=== PATIENT | male | born 1955 | race Caucasian/White ===

== ENCOUNTER 2021-02-22 07:56 | Outpatient (REF) | payer BC, SELFPAY ==
[2021-02-22 08:54] LABS: Anion Gap 12 (12-20); Blood Urea Nitrogen 13 mg/dL (9-16); Carbon Dioxide 30 mmol/L (22-29); Chloride 104 mmol/L (96-108); Estimated Glomerular Filt Rate > 60; Glucose Fasting 163 mg/dL (60-99); Potassium 5.4 mmol/L (3.3-5.1); Sodium 141 mmol/L (135-145)
[2021-02-22 08:58] LABS: Estimated Average Glucose 143 mg/dL; Hemoglobin A1c % 6.6 %
== END 2021-02-22 07:57 | disposition home or self-care (01) ==
LOC: HO.LAB 07:56
PROVIDERS: PCP Family Medicine; Visit Provider Family Medicine
DX: I10 Essential (primary) hypertension (principal); R73.9 Hyperglycemia, unspecified
CPT/HCPCS: 36415; 80051; 82565; 82947; 83036; 84520

== ENCOUNTER 2021-06-23 10:34 | Outpatient (REF) | payer BC, SELFPAY ==
[2021-06-23 11:40] LABS: Glucose Fasting 133 mg/dL (60-99)
[2021-06-23 12:15] LABS: Creatinine Urine 90.88 mg/dL; Microalbum/Creatinine Ratio Ur 5.5 ug/mg cr
[2021-06-24 08:54] LABS: HIV AB/AG Nonreactive (Nonreactive); HIV Num 1 0.07 S/CO (0.00-0.99)
== END 2021-06-23 10:35 | disposition home or self-care (01) ==
LOC: HO.LAB 10:34
PROVIDERS: PCP Family Medicine; Visit Provider Family Medicine
DX: Z11.4 Encounter for screening for human immunodeficiency virus [HIV] (principal); E11.9 Type 2 diabetes mellitus without complications
CPT/HCPCS: 36415; 82043; 82947; 87389

== ENCOUNTER → 2021-07-12 09:08 | Outpatient (BNVA) | payer BC, SELFPAY | PROVIDERS: PCP Family Medicine; Visit Provider Physician Assistant ==

== ENCOUNTER 2021-08-29 14:54 | Outpatient (REF) | payer BC, SELFPAY ==
--- NOTE | ~2021-08-29 | XR_ITS ---
EXAMINATION: XR CHEST CLINICAL INFORMATION: Cough and wheezing COMPARISON: Previous chest x-ray most recent November 2018 TECHNIQUE: 2 views of the chest were obtained. FINDINGS: The cardiac and mediastinal contours are stable. The lungs are clear. There is no pleural effusion or pneumothorax. There are degenerative changes of the spine. XR/XR chest 2V IMPRESSION: Unremarkable examination.
== END 2021-08-29 14:55 | disposition home or self-care (01) ==
LOC: HO.XRAY 14:54
PROVIDERS: PCP Family Medicine; Visit Provider Family Medicine
DX: R05.9 Cough, unspecified (principal); R06.2 Wheezing
CPT/HCPCS: 71046

== ENCOUNTER 2021-09-05 08:10 | Day surgery (SDC) | payer BC, SELFPAY ==
--- NOTE | 2021-09-05 08:44 | HO.ANESPROP2 ---
[facility] Active Problems Active Problems: All Active Problems (Updated 08/30/21 @ 10:07 by Maci Collazo RN) History of colonic polyps (Acute) HTN (hypertension) (Acute) Diabetes (Acute) Acid reflux (Acute) Past Medical History Medical History (Updated 08/30/21 @ 10:07 by Maci Collazo, RN) Acid reflux Atherosclerotic heart disease of [place] coronary artery without angina pectoris BPH (benign prostatic hyperplasia) Diabetes Elevated cholesterol GERD (gastroesophageal reflux disease) History of diverticulitis HTN (hypertension) On beta dyan at home Osteoarthritis Family History Family History (Updated 07/12/21 @ 09:06 by Brenna Leblanc PA-C) Paternal Grandfather Colon cancer Family history of problems with anesthesia: No Surgical History Surgical History (Updated 08/30/21 @ 10:07 by Maci Collazo RN) H/O heart artery stent History of intestinal surgery Hx of colonoscopy History of Problems with Anesthesia: No Social History Social History (Updated 07/12/21 @ 09:07 by Brenna Leblanc PA-C) Household Members Other:: Alcohol intake: current Patient Tobacco Use Status: Never used Tobacco Use of substances other than those prescribed or required for medical reasons: No Are you DNR?: No Advance Directives: No Advance Directives Information Provided: Yes Current occupational status: retired [employer] Allergies Allergy/AdvReac Type Severity Reaction Status Date / Time sulfamethoxazole Allergy Rash Verified 09/05/21 08:46 [From Bactrim] trimethoprim [From Bactrim] Allergy Rash Verified 09/05/21 08:46 LAZARO Inhibitors AdvReac Cough Verified 09/05/21 08:46 Active Medications: Current Medications Lactated Ringer's (Lr) 1,000 mls @ 50 mls/hr IVCONT .Q20H [facility] Home Medications Medication Instructions Recorded Confirmed Last Taken Type alirocumab 150 mg/mL subcutaneous mg SUBCUT Q2W 07/12/21 07/12/21 Unknown History syringe amlodipine 5 mg tablet 5 mg PO DAILY 07/12/21 08/30/21 Unknown History aspirin 81 mg tablet,delayed 81 mg PO DAILY 07/12/21 08/30/21 Unknown History release coenzyme Q10 400 mg capsule 400 mg PO DAILY 07/12/21 08/30/21 Unknown History folic acid 400 mcg tablet 0.4 mg PO DAILY 07/12/21 08/30/21 Unknown History mecobalamin (vitamin B12) 1,000 1,000 mcg PO DAILY 07/12/21 07/12/21 Unknown History mcg chewable tablet metoprolol tartrate 50 mg tablet 50 mg PO BID 07/12/21 08/30/21 Unknown History omeprazole 20 mg capsule,delayed 20 mg PO DAILY 07/12/21 08/30/21 Unknown History release pyridoxine (vitamin B6) 100 mg 50 mg PO DAILY 07/12/21 08/30/21 Unknown History tablet sertraline 50 mg tablet 50 mg PO DAILY 07/12/21 08/30/21 Unknown History tumeric 100 mg-kirk 150 mg-olive cap PO 07/12/21 07/12/21 Unknown History 50 mg-oreg 150 mg-caprylate capsule ezetimibe 10 mg tablet 1 tab PO DAILY 08/30/21 08/30/21 Unknown History Exam Exam Date and Time: September 05, 2021 0844 Airway Mallampati Class: III (Crowns laterally) TM Dist: >3cm Neck ROM: Full Heart: rrr Lungs: cta Assessment and Plan Assessment Anesthesia Assessment: Anesthesia Plan Discussed and Chart Reviewed Final Anesthetic Review Family History of Problems with Anesthesia: No History of Problems with Anesthesia: No NPO: Yes ASA Class: III Final Preanesthetic Review: No Changes in Pt Med Stat, Meds/Allgs Chart Reviewed and Consent Obtained/Reviewed Patient Risk: Intermediate Procedure Risk: Intermediate Anesthetic Plan Anesthetic Plan: MAC: Disposition: Standard PACU
[2021-09-05 08:59] VITALS: BP 169/102; PULSE 102; RESP 20; TEMP 36.6; O2SAT 96; BMI 42.5
--- NOTE | 2021-09-05 09:01 | MHC.SHP ---
Pre-Procedural Eval Section A Date of Service: 09/05/21 Section B Chief Complaint: hx of colonic polyps,reflux disease Details of Present Illness: FH in grandparent of CRC Relevant Family History (Specify if Yes): Yes Relevant Social History: None Present Medications: see Short Stay Collaborative assessment Medical History: Significant History (HTn, DM, GERD, CAD, colon polyps) History of Previous Operations: Relevant previous surgery/procedure and date(s) (coronary stenting) Allergies: Allergies Allergy/AdvReac Type Severity Reaction Status Date / Time sulfamethoxazole Allergy Rash Verified 09/05/21 08:46 [From Bactrim] trimethoprim [From Bactrim] Allergy Rash Verified 09/05/21 08:46 LAZARO Inhibitors AdvReac Cough Verified 09/05/21 08:46 Review of Systems Sugical H&P ROS: Negative: Constitution, Cardiovascular, Respiratory, Neurological, Psychiatric, Hem-Onc, Allergic/Immunologic, Gastrointestinal, Genitourinary, Musculoskeletal, Integumentary, Endocrine and Eyes/Ears/Nose/Throat Exam Surgical H&P Exam: Normal: HEENT, Normal: Heart, Normal: Lungs, Normal: Extremities, Normal: Abdomen, Normal: Skin and Normal: Neurological Plan Diagnosis/Plan: Unchanged I have reviewed the history and physical and performed a pertinent physical examination on my patient. No changes have occurred unless specified.
[2021-09-05] MEDS: Lactated Ringers 1,000 ML 50 ML IVCONT (09:19)
--- NOTE | 2021-09-05 09:34 | P.OP_ITS ---
Operative Note Operative Note Date of Service: 09/05/21 Narrative: Operative Information Procedure Description: EGD, Colonoscopy FLEXIBLE TRANSORAL UPPER GASTROINTESTINAL ENDOSCOPY AND COLONOSCOPY PROCEDURE NOTE UPPER ENDOSCOPY Consent: Indications for the procedure and potential complications of bleeding, perforation, reaction to medications and missed diagnosis were discussed with the patient and informed consent was obtained. Instrument: Olympus GIF H 190 J mid size upper endoscope Monitoring: Vital signs and clinical assessment, continuous EKG monitoring, Pulse oximetry, Carbon Dioxide monitoring and blood pressure monitoring were done throughout the procedure. Procedure: The patient was placed in the left lateral decubitis position and pre-procedure medications were administered and a bite block was placed. The endoscope was inserted into the mouth and advanced under direct vision to the third part of duodenum. A careful inspection was made as the upper endoscope was withdrawn including a retroflexed examination of the proximal stomach; Findings and interventions are described below. Findings: Larynx:normal Esophagus: GE junction at 39 cm, diaphragm hiatus at 42 cm, consistent with 2 cm slidign hiatal hernia--irregular Z line with islands of salmon pink tissue and mild esophagitis bx taken Stomach: Several fundic gland polyps noted, one was inflammed and red so biopsy excised. Biopsies were obtained. Grade 2 flap valve on retroflexed examination of the cardia. Streaky erythema in antrum bx taken Duodenum: Normal bulb and descending duodenum, Intervention: Biopsies as noted above COLONOSCOPY Instrument: Olympus variable stiffness pediatric scope 190L Colonoscopy Monitoring: Vital signs and clinical assessment, continuous EKG monitoring, Pulse oximetry, Carbon Dioxide monitoring and blood pressure monitoring were done throughout the procedure. Colon withdrawal time was 9 minutes. Procedure: The patient was placed in the left lateral decubitis position and pre-procedure medications were administered. After a digital rectal examination of the ano-rectum, the video colonoscope was inserted into the rectum and advanced through the colon to the cecum/TI. The colonoscope was slowly withdrawn in a retrograde panoramic fashion and the colon mucosa was carefully examined including a retroflexed view of the rectum. Findings and interventions are described below. Procedure Difficulty:easy Findings: Terminal Ileum-normal Cecum:normal Ascending Colon: 11-12 m sessile polyp removed with cold snare Transverse Colon -normal Descending Colon:normal There was a side to side anastomosis noted. Several diverticula seen in bowel proximal and around the anastomosis Rectum: Retroflexion with small internal hemorrhoids, grade I Anorectum - normal Colon preparation: [place] Bowel Preparation Scale Right colon; 2 Transverse colon: 2 Left colon; 2 (0 = Unprepared colon segment with mucosa not seen due to solid stool that cannot be cleared. 1 = Portion of mucosa of the colon segment seen, but other areas of the colon segment not well seen due to staining, residual stool and/or opaque liquid. 2 = Minor amount of residual staining, small fragments of stool and/or opaque liquid, but mucosa of colon segment seen well. 3 = Entire mucosa of colon segment seen well with no residual staining, small fragments of stool or opaque liquid) Impression and Post Procedure Diagnosis: Endoscopy Findings: hiatal hernia esophagitis barretts Colonoscopy Findings: polyp internal hemorrhoids diverticular disease Plan: Await Pathology results Repeat Colonoscopy in 5 years due to polyp or earlier if clinically indicated High fiber diet leaflet avoid straining at stool, epsom salts and sitz bath, anusol supps or cream reflux precautions, if barretts pos then repeat EGD 3-5 yrs Above findings were reviewed with the patient and relevant handouts were provided if indicated.
--- NOTE | 2021-09-05 09:34 | P.BOP_ITS ---
Brief Operative Note Date of Service: 09/05/21 Pre-op diagnosis: GERd, colon screening Post-op diagnosis: same Procedure: see op note Surgeon: Rey Ortiz MD Anesthesia: MAC Was an Open Hearth Laborer used for this Procedure?: No Estimated blood loss (mL): 0 Condition: stable Disposition: PACU
[2021-09-05 09:54] VITALS: BP 127/84; PULSE 93; RESP 16; TEMP 36.9; O2SAT 95
[2021-09-05 10:13] VITALS: BP 130/74; PULSE 79; RESP 16; TEMP 36.9; O2SAT 96
== END 2021-09-05 10:35 | disposition home or self-care (01) ==
PROVIDERS: PCP Family Medicine; Visit Provider Internal Medicine Gastroenterology
PROC: (CPT 45385; principal; 2021-09-05 09:20)
DX: Z12.11 Encounter for screening for malignant neoplasm of colon (principal); Z86.010 Personal history of colon polyps; D12.0 Benign neoplasm of cecum; K57.30 Diverticulosis of large intestine without perforation or abscess without bleeding; K64.0 First degree hemorrhoids; K21.9 Gastro-esophageal reflux disease without esophagitis; K20.80 Other esophagitis without bleeding; K29.50 Unspecified chronic gastritis without bleeding; K31.7 Polyp of stomach and duodenum; K44.9 Diaphragmatic hernia without obstruction or gangrene; I25.10 Atherosclerotic heart disease of native coronary artery without angina pectoris; Z98.61 Coronary angioplasty status; Z90.49 Acquired absence of other specified parts of digestive tract; Z98.0 Intestinal bypass and anastomosis status; Z79.82 Long term (current) use of aspirin; Z79.899 Other long term (current) drug therapy
CPT/HCPCS: 45385; 43239; 88305; 88342

== ENCOUNTER 2021-09-26 08:17 | Outpatient (REF) | payer BC, SELFPAY ==
--- NOTE | ~2021-09-26 | XR_ITS ---
EXAMINATION: XR SHOULDER, RIGHT XR SHOULDER, LEFT CLINICAL INFORMATION: Pain COMPARISON: 12/30/2019 TECHNIQUE: 4 views of each shoulder FINDINGS: Left shoulder: No fracture or dislocation. The glenohumeral joint is well aligned. The joint space is maintained. Small marginal osteophytes present. Mild hypertrophic degenerative change of the acromioclavicular joint. The visualized lung is clear. The visualized ribs are intact. Right shoulder: No fracture or dislocation. The glenohumeral joint is well aligned. The joint space is maintained. Small marginal osteophytes present. Mild hypertrophic degenerative change of the acromioclavicular joint. The visualized lung is clear. The visualized ribs are intact. XR/XR shoulder RT min 2V IMPRESSION: Mild degenerative changes of both shoulders.
--- NOTE | ~2021-09-26 | XR_ITS ---
EXAMINATION: XR SHOULDER, RIGHT XR SHOULDER, LEFT CLINICAL INFORMATION: Pain COMPARISON: 12/30/2019 TECHNIQUE: 4 views of each shoulder FINDINGS: Left shoulder: No fracture or dislocation. The glenohumeral joint is well aligned. The joint space is maintained. Small marginal osteophytes present. Mild hypertrophic degenerative change of the acromioclavicular joint. The visualized lung is clear. The visualized ribs are intact. Right shoulder: No fracture or dislocation. The glenohumeral joint is well aligned. The joint space is maintained. Small marginal osteophytes present. Mild hypertrophic degenerative change of the acromioclavicular joint. The visualized lung is clear. The visualized ribs are intact. XR/XR shoulder LT min 2V IMPRESSION: Mild degenerative changes of both shoulders.
== END 2021-09-26 08:18 | disposition home or self-care (01) ==
LOC: HO.HOSX 08:17
PROVIDERS: Visit Provider Orthopaedic Surgery
DX: M12.811 Other specific arthropathies, not elsewhere classified, right shoulder (principal); M12.812 Other specific arthropathies, not elsewhere classified, left shoulder
CPT/HCPCS: 20610; 73030; J1040

== ENCOUNTER 2021-10-28 08:53 | Outpatient (REF) | payer BC, SELFPAY ==
[2021-10-28 10:15] LABS: Estimated Average Glucose 160 mg/dL; Hemoglobin A1c % 7.2 %
[2021-10-28 10:18] LABS: Alanine Aminotransferase 25 U/L (0-40); Anion Gap 10 (12-20); Aspartate Amino Transferase 17 U/L (5-37); Blood Urea Nitrogen 15 mg/dL (9-16); Carbon Dioxide 31 mmol/L (22-29); Chloride 102 mmol/L (96-108); Cholesterol 154 mg/dL; Estimated Glomerular Filt Rate > 60; Glucose Fasting 146 mg/dL (60-99); HDL Cholesterol 51 mg/dL; LDL Cholesterol Calculated 75 mg/dl; Potassium 4.4 mmol/L (3.3-5.1); Sodium 139 mmol/L (135-145); Triglycerides 141 mg/dL
== END 2021-10-28 08:54 | disposition home or self-care (01) ==
LOC: HO.LAB 08:53
PROVIDERS: PCP Family Medicine; Visit Provider Family Medicine
DX: I10 Essential (primary) hypertension (principal); E11.9 Type 2 diabetes mellitus without complications; E78.00 Pure hypercholesterolemia, unspecified; Z79.899 Other long term (current) drug therapy
CPT/HCPCS: 36415; 80051; 80061; 82550; 82565; 82947; 83036; 84450; 84460; 84520

== ENCOUNTER 2022-06-10 08:24 | Outpatient (REF) | payer BC, SELFPAY ==
[2022-06-10 09:48] LABS: Estimated Average Glucose 220 mg/dL; Hemoglobin A1c % 9.3 %
[2022-06-10 09:57] LABS: Alanine Aminotransferase 23 U/L (0-40); Anion Gap 17 (12-20); Aspartate Amino Transferase 19 U/L (5-37); Blood Urea Nitrogen 15 mg/dL (9-16); Carbon Dioxide 29 mmol/L (22-29); Chloride 98 mmol/L (96-108); Cholesterol 154 mg/dL; Estimated Glomerular Filt Rate > 60; Glucose Fasting 234 mg/dL (60-99); HDL Cholesterol 46 mg/dL; LDL Cholesterol Calculated 85 mg/dl; Potassium 5.1 mmol/L (3.3-5.1); Sodium 139 mmol/L (135-145); Triglycerides 116 mg/dL
[2022-06-10 11:07] LABS: Creatinine Urine 85.69 mg/dL; Microalbum/Creatinine Ratio Ur 8.1 ug/mg cr
== END 2022-06-10 08:25 | disposition home or self-care (01) ==
LOC: HO.LAB 08:24
PROVIDERS: PCP Family Medicine; Visit Provider Family Medicine
DX: I10 Essential (primary) hypertension (principal); E11.9 Type 2 diabetes mellitus without complications; E78.00 Pure hypercholesterolemia, unspecified; Z79.899 Other long term (current) drug therapy
CPT/HCPCS: 36415; 80051; 80061; 82043; 82550; 82565; 82947; 83036; 84450; 84460; 84520

== ENCOUNTER 2022-06-16 08:02 | Outpatient (REF) | payer BC, SELFPAY ==
[2022-06-16 09:06] LABS: Estimated Average Glucose 220 mg/dL; Hemoglobin A1c % 9.3 %
[2022-06-16 09:20] LABS: Glucose Fasting 204 mg/dL (60-99)
== END 2022-06-16 08:03 | disposition home or self-care (01) ==
LOC: HO.LAB 08:02
PROVIDERS: PCP Family Medicine; Visit Provider Family Medicine
DX: E11.9 Type 2 diabetes mellitus without complications (principal)
CPT/HCPCS: 36415; 82947; 83036

== ENCOUNTER → 2022-07-20 08:35 | Outpatient (BNVA) | payer BC, SELFPAY | PROVIDERS: PCP Family Medicine; Visit Provider Orthopaedic Surgery | DX: M75.40 Impingement syndrome of unspecified shoulder (principal); M25.512 Pain in left shoulder; M25.511 Pain in right shoulder; E11.9 Type 2 diabetes mellitus without complications | CPT/HCPCS: 20610; J1100 ==

== ENCOUNTER 2022-07-21 13:52 | Outpatient (REF) | payer BC, SELFPAY | END 2022-07-21 13:53 | disposition home or self-care (01) | LOC: HO.SH 13:52 | PROVIDERS: Visit Provider Family Medicine | DX: Z01.118 Encounter for examination of ears and hearing with other abnormal findings (principal); H90.3 Sensorineural hearing loss, bilateral | CPT/HCPCS: 92557; 92567 ==

== ENCOUNTER → 2022-11-21 14:15 | Outpatient (BNVA) | payer BC, SELFPAY | PROVIDERS: PCP Family Medicine; Visit Provider Nurse Practitioner Family | DX: Z13.89 Encounter for screening for other disorder (principal) ==

== ENCOUNTER → 2022-12-12 15:57 | Outpatient (REF) | payer BC, SELFPAY | LOC: HO.SL 15:57 | PROVIDERS: PCP Family Medicine; Visit Provider Nurse Practitioner Family | DX: G47.33 Obstructive sleep apnea (adult) (pediatric) (principal); I10 Essential (primary) hypertension; R06.83 Snoring; R40.0 Somnolence | CPT/HCPCS: 95806 ==

== ENCOUNTER 2022-12-26 08:02 | Outpatient (REF) | payer BC, SELFPAY ==
[2022-12-26 08:52] LABS: Estimated Average Glucose 203 mg/dL; Hemoglobin A1c % 8.7 %
[2022-12-26 09:06] LABS: Alanine Aminotransferase 17 U/L (0-40); Anion Gap 10 (12-20); Aspartate Amino Transferase 14 U/L (5-37); Blood Urea Nitrogen 16 mg/dL (9-16); Carbon Dioxide 32 mmol/L (22-29); Chloride 100 mmol/L (96-108); Cholesterol 142 mg/dL; Estimated Glomerular Filt Rate > 60; Glucose Fasting 174 mg/dL (60-99); HDL Cholesterol 38 mg/dL; LDL Cholesterol Calculated 71 mg/dl; Potassium 5.3 mmol/L (3.3-5.1); Sodium 137 mmol/L (135-145); Triglycerides 167 mg/dL
[2022-12-26 09:42] LABS: Creatinine Urine 55.89 mg/dL; Microalbumin Urine < 5.0 mg/L
== END 2022-12-26 08:03 | disposition home or self-care (01) ==
LOC: HO.LAB 08:02
PROVIDERS: PCP Family Medicine; Visit Provider Family Medicine
DX: I10 Essential (primary) hypertension (principal); E78.00 Pure hypercholesterolemia, unspecified; E11.9 Type 2 diabetes mellitus without complications; Z79.899 Other long term (current) drug therapy
CPT/HCPCS: 36415; 80051; 80061; 82043; 82550; 82565; 82947; 83036; 84450; 84460; 84520

== ENCOUNTER → 2023-01-01 08:35 | Outpatient (BNVA) | payer BC, SELFPAY | PROVIDERS: PCP Family Medicine; Visit Provider Orthopaedic Surgery | DX: M12.811 Other specific arthropathies, not elsewhere classified, right shoulder (principal); M12.812 Other specific arthropathies, not elsewhere classified, left shoulder; E11.9 Type 2 diabetes mellitus without complications | CPT/HCPCS: 20610; J1100 ==

== ENCOUNTER → 2023-01-23 14:51 | Outpatient (BNVA) | payer BC, SELFPAY | PROVIDERS: PCP Family Medicine; Visit Provider Nurse Practitioner Family | DX: Z13.89 Encounter for screening for other disorder (principal) ==

== ENCOUNTER → 2023-02-03 00:05 | Outpatient (REF) | payer BC, SELFPAY | LOC: HO.SL 00:05 | PROVIDERS: PCP Family Medicine; Visit Provider Nurse Practitioner Family | DX: G47.33 Obstructive sleep apnea (adult) (pediatric) (principal) | CPT/HCPCS: 95811 ==

== ENCOUNTER 2023-06-11 07:45 | Outpatient (REF) | payer BC, SELFPAY ==
[2023-06-11 08:19] LABS: Estimated Average Glucose 163 mg/dL; Hemoglobin A1c % 7.3 %
[2023-06-11 08:42] LABS: Alanine Aminotransferase 18 U/L (0-40); Anion Gap 11 (12-20); Aspartate Amino Transferase 14 U/L (5-37); Blood Urea Nitrogen 15 mg/dL (9-16); Carbon Dioxide 29 mmol/L (22-29); Chloride 104 mmol/L (96-108); Cholesterol 121 mg/dL; Estimated Glomerular Filt Rate > 60; Glucose Fasting 140 mg/dL (60-99); HDL Cholesterol 39 mg/dL; LDL Cholesterol Calculated 47 mg/dl; Potassium 4.6 mmol/L (3.3-5.1); Sodium 139 mmol/L (135-145); Triglycerides 175 mg/dL
[2023-06-11 10:35] LABS: Creatinine Urine 115.56 mg/dL; Microalbumin Urine < 5.0 mg/L
== END 2023-06-11 07:46 | disposition home or self-care (01) ==
LOC: HO.LAB 07:45
PROVIDERS: PCP Family Medicine; Visit Provider Family Medicine
DX: I10 Essential (primary) hypertension (principal); E11.9 Type 2 diabetes mellitus without complications; E78.00 Pure hypercholesterolemia, unspecified
CPT/HCPCS: 36415; 80051; 80061; 82043; 82550; 82565; 82947; 83036; 84450; 84460; 84520

== ENCOUNTER 2023-08-02 08:24 | Outpatient (AMB) | payer BC, SELFPAY ==
--- NOTE | 2023-08-02 08:27 | A.OFFVIS_ITS ---
Intake Intake Visit Reasons: OV-B/L RTC Arthropathy, Last Injections 01/01/23 Intake Note: Myron is a 67 year old male who presents today for a follow up of bilateral shoulder pain . Last injections done bilaterally on 01/01/23. Patient reports that these injections were helpful and he would like to repeat. Allergies sulfamethoxazole [From Bactrim] Allergy (Verified 01/23/23 14:58) Rash trimethoprim [From Bactrim] Allergy (Verified 01/23/23 14:58) Rash LAZARO Inhibitors Adverse Reaction (Verified 01/23/23 14:58) Cough HPI OV-B/L RTC Arthropathy, Last Injections 01/01/23 HPI Details Myron is a 68 year old Diabetic man with bilateral RTC arthropathy. He was last injected on 01/01/23, with good relief. He would like to discuss repeat injections today. He continues to have pain with daily activity, worse with overhead activity and at night. he describes throbbing pain when he tries to raise his arms overhead. He works in [employer] and says his shoulders hurt worse after a day of work. He works part-time throughout the week. His Diabetes is well-controlled He is concerned he may have a Cyst on his hand and would like to speak with someone concerning treatment for this. He says this is painful when he is holding objects, especially tools at work. [facility] Medical History Acid reflux Atherosclerotic heart disease of [place] coronary artery without angina pectoris BPH (benign prostatic hyperplasia) Diabetes Elevated cholesterol GERD (gastroesophageal reflux disease) History of diverticulitis HTN (hypertension) On beta dyan at home Osteoarthritis Surgical History H/O heart artery stent History of intestinal surgery Hx of colonoscopy Family History Paternal Grandfather Colon cancer Social History Household Members Other:: Alcohol intake: current Patient Tobacco Use Status: Never used Tobacco Current occupational status: retired Review of Systems Const All systems reviewed & are unremarkable except as noted in HPI and below Physical Exam Const General: no acute distress, alert and awake Orientation/consciousness: patient oriented x3 HEENT Head: Yes normocephalic and Yes atraumatic Eyes EOM: EOMs intact bilaterally Resp Effort & Inspection: normal respiratory effort and able to speak in complete sentences Cardio Jugular venous distension: no JVD Skin General skin exam: turgor normal Rashes: no rashes Neuro General: patient oriented x3 Extrem Other: Bilateral Shoulders: Full ROM He can get his hand to back of head + Neer Weakness in empty can testing Psych Appearance: grossly normal Affect: normal affect Attitude: cooperative Office Procedures Joint Injection/Drain Joint Injection/Drain Details: Injected 1 mL of Decadron and 3 mL 1% lidocaine and 3 mL of 0.25% Marcaine. Site was prepped using aseptic technique. Patient tolerated the procedure well. Primary Site: right shoulder Secondary Site: left shoulder Approach Used: posterolateral Coding - Large joint - Glenohumeral/Tronchanteric Bursa/Intraarticular Procedure code (CPT) selection complete Results Reviewed Results Reviewed: 08/02/23 08:47 Lidocaine HCl 1 % [Xylocaine 1 %] 2 ml .ROUTE .STK-MED ONE Lidocaine HCl 2 % MPF [Xylocaine 2 % MPF] 5 ml .ROUTE .STK-MED ONE 08/02/23 08:48 dexAMETHasone sod phosphate [Decadron] 4 mg .ROUTE .STK-MED ONE Assessment & Plan Assessment & Plan (1) Rotator cuff arthropathy of both shoulders: Code(s): M12.811 - Other specific arthropathies, not elsewhere classified, right shoulder; M12.812 - Other specific arthropathies, not elsewhere classified, left shoulder Plan: This is a 68 year old man with bilateral RTC arthropathy. He has a Hx of good relief from steroid injections. He continues to have pain with daily activity, worse with overhead activity and especially at night after a day of work. He is not a surgical candidate at this time. I recommend he minimize his overhead activity if possible. I injected his bilateral shoulders today, which he tolerated well. He can follow up prn. (2) Diabetes: Code(s): E11.9 - Type 2 diabetes mellitus without complications Plan: I discussed the hyperglycemic effects of steroid injections. Plan Scribed for Taurus Chatman MD by Adalberto Lubanszky, medical technologist microbiology, on 08/02/23 at 8:50 AM, EST. Coding Level of Care Code Est Pt Level 4 (60437) Diagnoses Rotator cuff arthropathy of both shoulders M12.811; M12.812 Diabetes E11.9 CPT Codes Coding - 04274 Large joint: 01963 - Large joint ([id number]) Coding - Joint 7: 24289 - Glenohumeral/Tronchanteric Bursa/Intraarticular ([id number])
== END 2023-08-02 09:17 | disposition home or self-care (01) ==
PROVIDERS: Visit Provider Orthopaedic Surgery
DX: M12.811 Other specific arthropathies, not elsewhere classified, right shoulder (principal); M12.812 Other specific arthropathies, not elsewhere classified, left shoulder
CPT/HCPCS: 20610; 99214

== ENCOUNTER → 2023-08-02 08:24 | Outpatient (BNVA) | payer BC, SELFPAY | PROVIDERS: Visit Provider Orthopaedic Surgery | DX: M12.811 Other specific arthropathies, not elsewhere classified, right shoulder (principal); M12.812 Other specific arthropathies, not elsewhere classified, left shoulder; E11.9 Type 2 diabetes mellitus without complications | CPT/HCPCS: 20610; J1100 ==

== ENCOUNTER 2023-09-11 08:08 | Outpatient (AMB) | payer BC, SELFPAY ==
--- NOTE | 2023-09-11 08:13 | MHC.OFFVIS ---
Intake Vital Signs 09/11/23 08:19 Height 5 ft 6 in Weight 265 lb BMI 42.8 BP 130/80 Blood Pressure Location Lt brachial Position Sitting Pulse 66 Pulse Source Pulse Oximeter Pulse Oximetry (%) 96 Oxygen Delivery Method Room Air Intake Visit Reasons: 2 mnts f/u for sleep - Conf t/CW Intake Note: F/U for Sleep apnea Therapeutic Recreation Leader Required: No Allergies sulfamethoxazole [From Bactrim] Allergy (Verified 09/11/23 08:14) Rash trimethoprim [From Bactrim] Allergy (Verified 09/11/23 08:14) Rash LAZARO Inhibitors Adverse Reaction (Verified 09/11/23 08:14) Cough HPI HPI Comments History of Present Illness Details 68 y/o male patient presents for follow up of sleep apnea. The home sleep study result was significant for severe degree of sleep apnea. The AHI was 62/hr, and oxygen kary was 38%. Pt underwent titration study, breathing and oxygenation stabilized in BiPAP . Pt started BiPAP in July. The BiPAP compliance is not available at this time. Pt reports he sleeps much better, less snoring and rested. He wakes up refreshed, has more energy during daytime. He can sleep 5-6 hrs. [facility] Medical History Atherosclerotic heart disease of [place] coronary artery without angina pectoris HTN (hypertension) On beta dyan at home Diabetes Elevated cholesterol Osteoarthritis BPH (benign prostatic hyperplasia) History of diverticulitis GERD (gastroesophageal reflux disease) Acid reflux Surgical History History of intestinal surgery Hx of colonoscopy H/O heart artery stent Family History Paternal Grandfather Colon cancer (Updated 09/11/23 @ 08:18 by Yu Trinh CMA) Household Members Other:: Alcohol intake: current Patient Tobacco Use Status: Never used Tobacco Current occupational status: retired Review of Systems Const All systems reviewed & are unremarkable except as noted in HPI and below ENT Reports Normal hearing present Neuro Reports Normal hearing present Physical Exam Vital Signs: Last Vital Signs Pulse 66 09/11/23 08:19 BP 130/80 09/11/23 08:19 Pulse Ox 96 09/11/23 08:19 Oxygen Delivery Method Room Air 09/11/23 08:19 BMI result Body Mass Index 42.8 Const General: cooperative Nutritional Appearance: obese Orientation/consciousness: patient oriented x3 Limitations: no limitations HEENT Throat: Yes other Neck Neck: Yes full ROM and Yes supple Resp Effort & Inspection: normal respiratory effort and able to speak in complete sentences Neuro General: patient oriented x3, gait normal and moves all extremities Cranial nerves: Yes Bilaterally intact EOM present, Yes Normal facial strength present, Yes Midline tongue present, Yes Symmetric palate elevation present, Yes Normal hearing present, Yes Ability to bilaterally rotate head present and Yes Ability to bilaterally elevate shoulders present Cognition (Neuro): normal cognition Gait exam (Neuro): Normal gait present Motor exam (neuro): Pronator motor function not present and no tremor noted Psych Appearance: grossly normal Mental Status: mental status grossly normal Speech and movement: Normal speech and movement present Affect: normal affect Attitude: cooperative Assessment & Plan Assessment & Plan (1) AKBAR (obstructive sleep apnea): Comment: severe sleep apnea. The AHI was 62/hr and the oxygen kary was 38%. The average O2 was 84%. Code(s): G47.33 - Obstructive sleep apnea (adult) (pediatric) Plan Continue to use BiPAP as patient experiences good clinical effects. Stressed compliance, use BiPAP nightly and more than 4 hrs. Advised patient to send his current SD card to [facility] for compliance record. Wt reduction advised. Coding Level of Care Code Est Pt Level 3 (29775) Diagnoses AKBAR (obstructive sleep apnea) G47.33
[2023-09-11 08:19] VITALS: BP 130/80; PULSE 66; O2SAT 96; BMI 42.8
== END 2023-09-11 08:50 | disposition home or self-care (01) ==
PROVIDERS: PCP Family Medicine; Visit Provider Nurse Practitioner Family
DX: G47.33 Obstructive sleep apnea (adult) (pediatric) (principal)
CPT/HCPCS: 99213

== ENCOUNTER → 2023-09-11 08:08 | Outpatient (BNVA) | payer BC, SELFPAY | PROVIDERS: PCP Family Medicine; Visit Provider Nurse Practitioner Family ==

== ENCOUNTER 2023-12-12 09:43 | Outpatient (REF) | payer BC, SELFPAY ==
--- NOTE | ~2023-12-12 | US_ITS ---
EXAMINATION: US EXTRACRANIAL CAROTID DUPLEX, BILATERAL CLINICAL INFORMATION: Decreased pulse in the right carotid. COMPARISON: None available. TECHNIQUE: Real-time ultrasound and Doppler techniques (integrating B-mode 2-D vascular images, Doppler spectral analysis and color-flow Doppler imaging) were utilized to interrogate the extracranial carotid arteries, the vertebral arteries and proximal subclavian arteries bilaterally. The degree of stenosis is determined by criteria similar to NASCET. FINDINGS: Right Side: 1. There is mild atherosclerotic plaque seen in the bifurcation/proximal ICA region. 2. The common carotid artery PSV proximally is 134 cm/s and distally 108 cm/s. 3. The proximal internal carotid artery velocities are 109 cm/s systolic and 24 cm/s diastolic. 4. The proximal external carotid artery PSV is 145 cm/s. 5. The vertebral artery shows antegrade flow. 6. The subclavian artery waveforms are normal. Left Side: 1. There is mild atherosclerotic plaque seen in the bifurcation/proximal ICA region. 2. The common carotid artery PSV proximally is 111 cm/s and distally 100 cm/s. 3. The proximal internal carotid artery velocities are 100 cm/s systolic and 22 cm/s diastolic. 4. The proximal external carotid artery PSV is 125 cm/s. 5. The vertebral artery shows antegrade flow. 6. The subclavian artery waveforms are normal. US/US carotid duplex BI IMPRESSION: 1. RIGHT: Minimal, non-hemodynamically significant stenosis of the proximal right internal carotid artery corresponding to a 0-49% stenosis by velocity criteria. 2. LEFT: Minimal, non-hemodynamically significant stenosis of the proximal left internal carotid artery corresponding to a 0-49% stenosis by velocity criteria.
== END 2023-12-12 09:44 | disposition home or self-care (01) ==
LOC: HO.US 09:43
PROVIDERS: PCP Family Medicine; Visit Provider Family Medicine
DX: R09.89 Other specified symptoms and signs involving the circulatory and respiratory systems (principal); I10 Essential (primary) hypertension; E11.9 Type 2 diabetes mellitus without complications
CPT/HCPCS: 93880

== ENCOUNTER 2023-12-15 07:48 | Outpatient (REF) | payer BC, SELFPAY ==
[2023-12-15 09:19] LABS: Estimated Average Glucose 174 mg/dL; Hemoglobin A1c % 7.7 % (<6.0)
[2023-12-15 09:35] LABS: Anion Gap 12 (12-20); Blood Urea Nitrogen 16 mg/dL (9-16); Carbon Dioxide 28 mmol/L (22-29); Chloride 103 mmol/L (96-108); Cholesterol 105 mg/dL (<200); Estimated Glomerular Filt Rate > 60; Glucose Fasting 134 mg/dL (60-99); HDL Cholesterol 32 mg/dL (>40); LDL Cholesterol Calculated 45 mg/dL (<100); Potassium 4.3 mmol/L (3.3-5.1); Sodium 139 mmol/L (135-145); Triglycerides 143 mg/dL (<150)
[2023-12-15 11:04] LABS: Creatinine Urine 256.34 mg/dL; Microalbum/Creatinine Ratio Ur 8.5 ug/mg cr (<30)
== END 2023-12-15 07:49 | disposition home or self-care (01) ==
LOC: HO.LAB 07:48
PROVIDERS: PCP Family Medicine; Visit Provider Family Medicine
DX: I10 Essential (primary) hypertension (principal); E11.9 Type 2 diabetes mellitus without complications; E78.00 Pure hypercholesterolemia, unspecified
CPT/HCPCS: 36415; 80051; 80061; 82043; 82565; 82570; 82947; 83036; 84520

== ENCOUNTER 2024-01-03 08:23 | Outpatient (AMB) | payer BC, SELFPAY ==
[2024-01-03 08:25] VITALS: BMI 42.8
--- NOTE | 2024-01-03 08:25 | A.OFFVIS_ITS ---
Intake Vital Signs 01/03/24 08:25 Height 5 ft 6 in Weight 265 lb BMI 42.8 Intake Visit Reasons: OV-B/L RTC Arthropathy, Last Injection 08/02/23 Intake Note: Myron is a 67 year old male who presents today for a follow up of bilateral shoulder pain . Last injections done bilaterally on 08/02/2023. At his last visit he was given instructions to minimize overhead activity. Patient reports that these last injection were helpful and he would like to repeat bilaterally today Allergies sulfamethoxazole [From Bactrim] Allergy (Verified 01/03/24 08:30) Rash trimethoprim [From Bactrim] Allergy (Verified 01/03/24 08:30) Rash LAZARO Inhibitors Adverse Reaction (Verified 01/03/24 08:30) Cough HPI OV-B/L RTC Arthropathy, Last Injection 08/02/23 HPI Details Myron is a 67 year old male who presents today for a follow up of bilateral shoulder arthropathy . Last injections done bilaterally on 08/02/2023. instructed to minimize overhead activity. The prior injections were helpful. He has not interested in surgery at this time. 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 [facility] Medical History Atherosclerotic heart disease of [place] coronary artery without angina pectoris HTN (hypertension) On beta dyan at home Diabetes Elevated cholesterol Osteoarthritis BPH (benign prostatic hyperplasia) History of diverticulitis GERD (gastroesophageal reflux disease) Acid reflux Surgical History History of intestinal surgery Hx of colonoscopy H/O heart artery stent Family History Paternal Grandfather Colon cancer Social History Household Members Other:: Alcohol intake: current Patient Tobacco Use Status: Never used Tobacco Current occupational status: retired Physical Exam Vital Signs: BMI result Body Mass Index 42.8 Extrem Other: 4/5 empty can bilaterally Office Procedures Joint Injection/Drain Joint Injection/Drain Details: Injected 1 mL of Decadron and 3 mL 1% lidocaine and 3 mL of 0.25% Marcaine. Site was prepped using aseptic technique. Patient tolerated the procedure well. Primary Site: right shoulder Secondary Site: left shoulder Approach Used: posterolateral Coding - Large joint 85116 - Glenohumeral/Tronchanteric Bursa/Intraarticular Procedure code (CPT) selection complete Assessment & Plan Assessment & Plan (1) Rotator cuff arthropathy of both shoulders: Code(s): M12.811 - Other specific arthropathies, not elsewhere classified, right shoulder; M12.812 - Other specific arthropathies, not elsewhere classified, left shoulder Plan: Bilateral rotator cuff arthropathy in a active 68-year-old diabetic male. Injections have not elevated his blood sugar in the past and we inject both shoulders today. I would try to refrain from injections more than twice a year. DIscussed the hyperglycemic effects of steroids. (2) Diabetes: Code(s): E11.9 - Type 2 diabetes mellitus without complications Plan: DIscussed the hyperglycemic effects of steroids. Plan Repeat bilateral shoulder injections today, follow up for repeat injection no sooner than 3 months Coding Level of Care Code Est Pt Level 4 (66614) Diagnoses Rotator cuff arthropathy of both shoulders M12.811; M12.812 Diabetes E11.9 CPT Codes Coding - Large joint: 74206 - Large joint ([id number]) Coding - Joint 7: 38805 - Glenohumeral/Tronchanteric Bursa/Intraarticular ([id number])
== END 2024-01-03 08:59 | disposition home or self-care (01) ==
PROVIDERS: PCP Family Medicine; Visit Provider Orthopaedic Surgery
DX: M12.811 Other specific arthropathies, not elsewhere classified, right shoulder (principal); M12.812 Other specific arthropathies, not elsewhere classified, left shoulder; E11.9 Type 2 diabetes mellitus without complications
CPT/HCPCS: 20610; 99214

== ENCOUNTER → 2024-01-03 08:23 | Outpatient (BNVA) | payer BC, SELFPAY | PROVIDERS: PCP Family Medicine; Visit Provider Orthopaedic Surgery | DX: M12.811 Other specific arthropathies, not elsewhere classified, right shoulder (principal); M12.812 Other specific arthropathies, not elsewhere classified, left shoulder; E11.9 Type 2 diabetes mellitus without complications | CPT/HCPCS: 20610; J0665; J1100 ==

== ENCOUNTER 2024-03-24 08:00 | Outpatient (REF) | payer BC, SELFPAY ==
[2024-03-24 08:45] LABS: Estimated Average Glucose 174 mg/dL; Hemoglobin A1c % 7.7 % (<6.0)
[2024-03-24 09:30] LABS: Glucose Fasting 151 mg/dL (60-99)
[2024-03-26 19:18] LABS: Homocysteine 9.2 umol/L (<11.4)
== END 2024-03-24 08:01 | disposition home or self-care (01) ==
LOC: HO.LAB 08:00
PROVIDERS: PCP Family Medicine; Visit Provider Family Medicine
DX: I25.42 Coronary artery dissection (principal); E11.9 Type 2 diabetes mellitus without complications
CPT/HCPCS: 36415; 82947; 83036; 83090

== ENCOUNTER 2024-07-07 08:10 | Outpatient (AMB) | payer BC, SELFPAY ==
--- NOTE | 2024-07-07 08:12 | A.OFFVIS_ITS ---
Vital Signs 07/07/24 08:15 Height 5 ft 6 in Weight 265 lb BMI 42.8 Intake Visit Reasons: OV-B/L RTC Arthropathy, Last Injection 01/03/24 Intake Note: Myron is a 67 year old male who presents today for a follow up of his bilateral shoulder pain. Last injections done bilaterally on 01/03/2024. He states that his last injections gave him about 2 + months of relief. Patient is having little to no pain at the moment. Allergies sulfamethoxazole [From Bactrim] Allergy (Verified 07/07/24 08:15) Rash trimethoprim [From Bactrim] Allergy (Verified 07/07/24 08:15) Rash LAZARO Inhibitors Adverse Reaction (Verified 07/07/24 08:15) Cough HPI HPI OV-B/L RTC Arthropathy, Last Injection 01/03/24: Details: Mr. Marroquin returns today with complaints of bilateral shoulder pain. He continues to work at [employer] which is a difficult job but he is doing well. He feels that the injections have been helping. His diabetes is under control. Most of his pain is at the end of the day and with extensive activity. [facility] Medical History Atherosclerotic heart disease of [place] coronary artery without angina pectoris HTN (hypertension) On beta dyan at home Diabetes Elevated cholesterol Osteoarthritis BPH (benign prostatic hyperplasia) History of diverticulitis GERD (gastroesophageal reflux disease) Acid reflux Surgical History History of intestinal surgery Hx of colonoscopy H/O heart artery stent Family History Paternal Grandfather Colon cancer Social History Household Members Other:: Alcohol intake: current Patient Tobacco Use Status: Never used Tobacco Current occupational status: retired Physical Exam Vital Signs: BMI result Body Mass Index 42.8 Extrem Other: 4/5 empty can bilaterally Positive Murdock and Neer External rotation 30 degrees bilaterally. Office Procedures Joint Injection/Aspiration Joint Injection/Aspiration Details: Injected 1 mL of Decadron and 3 mL 1% lidocaine and 3 mL of 0.25% Marcaine. Site was prepped using aseptic technique. Patient tolerated the procedure well. Primary Site: right shoulder Secondary Site: left shoulder Approach Used: posterolateral Coding - Large joint 57667 - Glenohumeral/Tronchanteric Bursa/Intraarticular Procedure code (CPT) selection complete Assessment & Plan Assessment & Plan (1) Rotator cuff arthropathy of both shoulders: Code(s): M12.811 - Other specific arthropathies, not elsewhere classified, right shoulder; M12.812 - Other specific arthropathies, not elsewhere classified, left shoulder Category: Medical Plan: Mr. Posadas is a active 69-year-old gentleman with bilateral rotator cuff arthropathy. He is pretty functional and is continuing activity. I injected bilateral shoulders today. I recommend he continue strengthening for his back a nd range motion activities as he has learned with PT. we are trying to do a six- month injection protocol. (2) Diabetes: Code(s): E11.9 - Type 2 diabetes mellitus without complications Category: Medical Plan: I informed him of the hyperglycemic effects of steroids. He states his sugars elevate slightly with the injections but it is minimal. Coding Level of Care Code Est Pt Level 4 (56140) Diagnoses Rotator cuff arthropathy of both shoulders M12.811; M12.812 Diabetes E11.9 CPT Codes Coding - Large joint: 53282 - Large joint ([id number]) Coding - Joint 7: 17315 - Glenohumeral/Tronchanteric Bursa/Intraarticular ([id number])
[2024-07-07 08:15] VITALS: BMI 42.8
== END 2024-07-07 08:48 | disposition home or self-care (01) ==
PROVIDERS: PCP Family Medicine; Visit Provider Orthopaedic Surgery
DX: M12.811 Other specific arthropathies, not elsewhere classified, right shoulder (principal); M12.812 Other specific arthropathies, not elsewhere classified, left shoulder; E11.9 Type 2 diabetes mellitus without complications
CPT/HCPCS: 20610; 99214

== ENCOUNTER → 2024-07-07 08:10 | Outpatient (BNVA) | payer BC, SELFPAY | PROVIDERS: PCP Family Medicine; Visit Provider Orthopaedic Surgery | DX: M12.811 Other specific arthropathies, not elsewhere classified, right shoulder (principal); M12.812 Other specific arthropathies, not elsewhere classified, left shoulder; E11.9 Type 2 diabetes mellitus without complications | CPT/HCPCS: 20610; J0665; J1100 ==

== ENCOUNTER 2024-09-25 09:38 | Outpatient (AMB) | payer BC, SELFPAY ==
--- NOTE | 2024-09-25 09:41 | A.OFFVIS_ITS ---
Vital Signs 09/25/24 09:43 09/25/24 09:51 Height 5 ft 6 in Weight 269 lb BMI 43.4 BP 138/82 Blood Pressure Location Rt brachial Position Sitting Intake Visit Reasons: 1 yr f./u -AKBAR Intake Note: Patient presents for AKBAR. Allergies sulfamethoxazole [From Bactrim] Allergy (Verified 09/25/24 09:47) Rash trimethoprim [From Bactrim] Allergy (Verified 09/25/24 09:47) Rash LAZARO Inhibitors Adverse Reaction (Verified 09/25/24 09:47) Cough Medication List - Last Reconciled 09/25/24 by Christopher Vences PA-C alirocumab mg subcut Q2W amlodipine 5 mg PO DAILY aspirin 81 mg PO DAILY bisacodyl (Dulcolax (bisacodyl)) 10 mg (2 x 5 mg) PO ONCE 1 day coenzyme Q10 400 mg PO DAILY ezetimibe 1 tab PO DAILY folic acid 0.4 mg PO DAILY mecobalamin (vitamin B12) 1,000 mcg PO DAILY metformin 1,000 mg PO DAILY metoprolol tartrate 50 mg PO BID omeprazole 40 mg PO DAILY polyethylene glycol 3350 (Miralax) 238 grams PO ONCE 1 day pyridoxine (vitamin B6) 50 mg PO DAILY sertraline 50 mg PO DAILY zlhrsngn-ujnt-sgpnq-oreg-capry 100 mg-150 mg- 50 mg-150 mg caps PO HPI Comments Details: 68 y/o male patient presents for follow up of sleep apnea. The home sleep study result was significant for severe degree of sleep apnea. The AHI was 62/hr, and oxygen kary was 38%. Pt underwent titration study, breathing and oxygenation stabilized in BiPAP 25/21. Pt reports he sleeps much better, less snoring and quality of sleep is improved. He wakes up refreshed, has more energy during daytime. No snoring per . Memory and mood has improved. He can sleep 7-8 hrs. He is interested in [employer], as the mask is always irritating his face, after two hours the mask is comes off, he likes the style of mask he has (F20). Compliance Report on phone yajaira: Total usage >4 hours is 80% Total use per night 7hours 45 min AHI 1.0/hr, pressures are good A1c elevated, working with PCP on Trulicity 1.5mg. He has started walking 2-3 times per week, motivated to lose weight, he is retired but continues to work in [employer]. [facility] Medical History Atherosclerotic heart disease of [place] coronary artery without angina pectoris HTN (hypertension) On beta dyan at home Diabetes Elevated cholesterol Osteoarthritis BPH (benign prostatic hyperplasia) History of diverticulitis GERD (gastroesophageal reflux disease) Acid reflux Surgical History History of intestinal surgery Hx of colonoscopy H/O heart artery stent Family History Paternal Grandfather Colon cancer Social History Household Members Other:: Alcohol intake: current Patient Tobacco Use Status: Never used Tobacco Current occupational status: retired Review of Systems Const All systems reviewed & are unremarkable except as noted in HPI and below ENT Reports Normal hearing present Neuro Reports Normal hearing present Physical Exam Vital Signs: Last Vital Signs BP 138/82 09/25/24 09:51 BMI result Body Mass Index 43.4 Const General: cooperative, comfortable and no acute distress Nutritional Appearance: average body habitus and obese (BMI is 43.4) Orientation/consciousness: patient oriented x3 Eyes Pupils: Equal, round and reactive pupils present Resp Effort & Inspection: normal respiratory effort and able to speak in complete sentences Neuro General: patient oriented x3 Cranial nerves: Yes CN's II-XII intact bilaterally, Yes Facial sensation intact/muscles of mastication intact, Yes Equal, round and reactive pupils present, Yes Normal accommodation reflex present, Yes Bilaterally intact EOM present, Yes Nystagmus not present, Yes Normal facial strength present, Yes Midline tongue present, Yes Normal hearing present, Yes Ability to bilaterally rotate head present and Yes Ability to bilaterally elevate shoulders present Cognition (Neuro): normal cognition Motor exam (neuro): 5/5 motor strength present throughout Deep tendon reflexes (DTR's): Right triceps reflex intensity grade: 2+, Left t riceps reflex intensity grade: 2+, Rt Biceps (C5, C6): 2+, Left biceps reflex intensity grade: 2+, Right brachioradialis reflex intensity grade: 2+, Left brachioradialis reflex intensity grade: 2+, Right patellar reflex intensity grade: 2+ and Left patellar reflex intensity grade: 2+ Coordination: amkeeb-hv-rjvd test normal Psych Affect: normal affect Attitude: cooperative Thought process: Normal thought process present Thought content: Normal thought content present Results Reviewed Results Reviewed: Compliance Report 05/2024- 09/2024- on phone yajaira Total days usage is >4 80% Total hours per night 7hours and 45 min AHI 1.1 Assessment & Plan Assessment & Plan (1) AKBAR (obstructive sleep apnea): Comment: severe sleep apnea. The AHI was 62/hr and the oxygen kary was 38%. The average O2 was 84%. Code(s): G47.33 - Obstructive sleep apnea (adult) (pediatric) Category: Medical Plan Referred to ENT Dr. Reese for DISE procedure/ Evaluation for [employer]. Patient continues to have difficulty with mask nightly. Patient is a good candidate for [employer], BMI is 43, AHI 67 during split study. Discussed weight management and daily exercise, #1 modifiable risk factor of CV events is HTN. [facility], 1.5mg with PCP, walking daily. Orders: Referrals Ear/Nose/Throat Referral G47.33 - Obstructive sleep apnea (adult) (pediatric), R09.81 - Nasal congestion Coding Level of Care Code Est Pt Level 3 (54230) Diagnoses AKBAR (obstructive sleep apnea) G47.33 Time Spent (min) 30 Comment Patient is improving, motivated to lose weight.
[2024-09-25 09:43] VITALS: BMI 43.4
[2024-09-25 09:51] VITALS: BP 138/82
== END 2024-09-25 10:29 | disposition home or self-care (01) ==
PROVIDERS: Absent Provider Psychiatry & Neurology Neurology; PCP Family Medicine; Visit Provider Physician Assistant Medical
DX: G47.33 Obstructive sleep apnea (adult) (pediatric) (principal)
CPT/HCPCS: 99213

== ENCOUNTER 2024-10-13 08:12 | Outpatient (REF) | payer BC, SELFPAY ==
[2024-10-13 09:32] LABS: Estimated Average Glucose 169 mg/dL; Hemoglobin A1C 173.5132 umol/L; Hemoglobin A1c % 7.5 % (<6.0); Total Hemoglobin (HGBA1C) 2951.0148 umol/L
[2024-10-13 09:59] LABS: Anion Gap 13 (12-20); Blood Urea Nitrogen 13 mg/dL (9-16); Carbon Dioxide 26 mmol/L (22-29); Chloride 103 mmol/L (96-108); Cholesterol 134 mg/dL (<200); Estimated Glomerular Filt Rate > 60; Glucose Fasting 192 mg/dL (60-99); HDL Cholesterol 35 mg/dL (>40); LDL Cholesterol Calculated 41 mg/dL (<100); Potassium 4.9 mmol/L (3.3-5.1); Sodium 137 mmol/L (135-145); Triglycerides 294 mg/dL (<150)
== END 2024-10-13 08:13 | disposition home or self-care (01) ==
LOC: HO.LAB 08:12
PROVIDERS: PCP Family Medicine; Visit Provider Family Medicine
DX: I10 Essential (primary) hypertension (principal); E78.00 Pure hypercholesterolemia, unspecified; E11.9 Type 2 diabetes mellitus without complications
CPT/HCPCS: 36415; 80051; 80061; 82565; 82947; 83036; 84520

== ENCOUNTER 2025-02-17 09:04 | Outpatient (REF) | payer BC, SELFPAY ==
--- OUTSIDE RECORDS SUMMARY | 2025-02-17 09:43 | XMS_ITS | Clinical Summary ---
Author Organization [address] [place] [address] [place] [phone] Phone Care Team Providers Care Technology Resource Teacher Name Role Phone Eldon Wilson MD Primary Care Provider [phone] Medications Praluent Pen 150 mg/mL pen injector INJECT 1 PEN (150MG) UNDER THE SKIN EVERY 14 DAYS DIRECTED 6 mL 1 11/20/2024 Active Encounters Date Type Department Care Team Description 01/23/2025 Telephone [facility] [address] [place] [phone] David Jara MD Praluent 150mg/ml from Last 3 Months Social History Tobacco Use Types Packs/Day Years Used Date Smoking Tobacco: Former Smokeless Tobacco: Never Alcohol Use Standard Drinks/Week Comments Not Currently 0 (1 standard drink = 0.6 oz pur e alcohol) Sex and Gender Information Value Date Recorded Sex Assigned at Not on file Legal Sex Male 6:36 PM EST Gender Identity Not on file Sexual Orientation Not on file Obstetrics History Last Filed Vital Signs Vital Sign Reading Time Taken Comments Blood Pressure 150/80 01/14/2024 7:48 AM EDT Sit ting L Arm Pulse 70 01/14/2024 7:48 AM EDT Temperature - - Respiratory Rate - - Oxygen Saturation - - Inhaled Oxygen Concentration - - Weight 122 kg (268 lb) 01/14/2024 7:48 AM EDT Height 162.6 cm (5' 4 ) 01/14/2024 7:48 AM EDT Body Mass Index 46 01/14/2024 7:48 AM EDT Plan of Treatment Upcoming Encounters Date Type Department Care Team (Late st Contact Info) Description 04/03/2025 8:40 AM EDT Office Visit [facility] [address] [place] [phone] Luc Cordova NP [address] [place] [address] [address] [place] [address] Health Maintenance Due Date Last Done Comments Pneumococcal Vaccine: 50+ Years (1 of 1 - PCV) 01/11/2006 Zoster Vaccines (1 of 2) 01/11/2006 RSV Immunization Adult Patients (1 - Risk 60-74 years 1-dose series) 2016 Abdominal Aortic Aneurysm (AAA) Screen 09/23/2022 Cholesterol Screening (Lipid Panel) 09/23/2022 Colorectal Cancer Screening: Colonoscopy 09/23/2022 Depression Screening 09/23/2022 Falls Risk Assessment 09/23/2022 Hepatitis C Screening 09/23/2022 Social Influencers of Health Screening 09/23/2022 Hypertension/CHF/CAD Annual BMP Blood Test 10/01/2022 COVID-19 Vaccine (1 - 2023-2 5 season) 2024 Influenza Vaccine (Season Ended) 2025 09/09/2021, 08/06/2020 DTaP,Tdap,and Td Vaccines (2 - Td or Tdap) 04/13/2030 04/13/2020 HIB Vaccines Aged Out No longer eligi ble based on patient's age to complete this topic HPV Vaccines Aged Out No longer eligi ble based on patient's age to complete this topic Hepatitis A Vaccines Aged Out No long er eligible based on patient's age to complete this topic Hepatitis B Vaccines Aged Out No long er eligible based on patient's age to complete this topic IPV Vaccines Aged Out No longer eligi ble based on patient's age to complete this topic MMR Vaccines Aged Out No longer eligi ble based on patient's age to complete this topic Meningococcal ACWY Vaccine Aged Out N o longer eligible based on patient's age to complete this topic Meningococcal B Vaccine Aged Out No l onger eligible based on patient's age to complete this topic RSV Immunization Patients Under 20 months Aged Out No longer eligible b ased on patient's age to complete this topic Varicella Vaccines Aged Out No longer eligible based on patient's age to complete this topic Insurance MEDICARE [facility]) Care Teams Technology Resource Teacher Relationship Specialty Start Date End Date Eldon Wilson MD [address] [place] [address] [place] [address] PCP - General 03/26/15
[2025-02-17 09:57] LABS: Estimated Average Glucose 169 mg/dL; Hemoglobin A1C 171.6741 umol/L; Hemoglobin A1c % 7.5 % (<6.0); Total Hemoglobin (HGBA1C) 2924.2918 umol/L
[2025-02-17 10:11] LABS: Alanine Aminotransferase 14 U/L (0-40); Anion Gap 13 (12-20); Aspartate Amino Transferase 22 U/L (5-37); Blood Urea Nitrogen 15 mg/dL (9-16); Carbon Dioxide 27 mmol/L (22-29); Chloride 104 mmol/L (96-108); Cholesterol 109 mg/dL (<200); Estimated Glomerular Filt Rate > 60; Glucose Fasting 172 mg/dL (60-99); HDL Cholesterol 33 mg/dL (>40); LDL Cholesterol Calculated 46 mg/dL (<100); Potassium 4.5 mmol/L (3.3-5.1); Sodium 139 mmol/L (135-145); Triglycerides 152 mg/dL (<150)
== END 2025-02-17 09:05 | disposition home or self-care (01) ==
LOC: HO.LAB 09:04
PROVIDERS: PCP Family Medicine; Visit Provider Family Medicine
DX: I10 Essential (primary) hypertension (principal); E78.00 Pure hypercholesterolemia, unspecified; E11.9 Type 2 diabetes mellitus without complications
CPT/HCPCS: 36415; 80051; 80061; 82550; 82565; 82947; 83036; 84450; 84460; 84520

== ENCOUNTER 2025-05-07 09:00 | Outpatient (AMB) | payer BC, SELFPAY ==
--- NOTE | 2025-05-07 09:21 | A.OFFVIS_ITS ---
Intake Visit Reasons: OV-B/L RTC Arthropathy, Last Injection 07/07/24 Intake Note: Myron is a 70 year old right hand dominant male who presents today for a follow up of his bilateral RTC arthropathy. Both of his shoulders were injected at his last visit on 07/07/24. We discussed a 6 month injection protocol. Patient reports that these injections were helpful, he has just started to feel some pain and he would like to repeat injections today. Allergies sulfamethoxazole (From Bactrim) Allergy (Verified 09/25/24 09:47) Rash trimethoprim (From Bactrim) Allergy (Verified 09/25/24 09:47) Rash LAZARO Inhibitors Adverse Reaction (Verified 09/25/24 09:47) Cough HPI HPI OV-B/L RTC Arthropathy, Last Injection 07/07/24: Details: 70-year-old gentleman with bilateral rotator cuff arthropathy who benefits from subacromial injections. He has pain that is significant when he is extremely active. He works part-time as a wood fence installer and this requires a lot of pulling and and lifting activities. He states the injections help him and he gets them every 6 months. [facility] Medical History Atherosclerotic heart disease of [place] coronary artery without angina pectoris HTN (hypertension) On beta dyan at home Diabetes Elevated cholesterol Osteoarthritis BPH (benign prostatic hyperplasia) History of diverticulitis GERD (gastroesophageal reflux disease) Acid reflux Surgical History History of intestinal surgery Hx of colonoscopy H/O heart artery stent Family History Paternal Grandfather Colon cancer Social History Household Members Other:: Alcohol intake: current Patient Tobacco Use Status: Never used Tobacco Current occupational status: retired Physical Exam Extrem Other: 70-year-old gentleman no acute distress. 4/5 empty can bilaterally Positive Murdock and Neer External rotation 30 degrees bilaterally. Office Procedures Joint Inj/Aspir; Non-Pain Clin Joint Injection/Drain Details: Injected 1 mL of Decadron and 3 mL 1% lidocaine and 3 mL of 0.25% Marcaine. Site was prepped using aseptic technique. Patient tolerated the procedure well. Shoulders, Hips, Knees, Shoulder Injection Large joint : Bilateral Shoulders Coding Procedure code (CPT) selection complete Assessment & Plan Assessment & Plan (1) Rotator cuff arthropathy of both shoulders: Code(s): M12.811 - Other specific arthropathies, not elsewhere classified, right shoulder; M12.812 - Other specific arthropathies, not elsewhere classified, left shoulder Category: Medical Plan: I injected bilateral shoulders again today. He seems to be able to manage his symptoms with activity and occasional injections. May follow up in 6 months' time. Coding Level of Care Code Est Pt Level 3 (04020) Diagnoses Rotator cuff arthropathy of both shoulders M12.811; M12.812 CPT Codes Shoulders, Hips, Knees, - Shoulder Injection Large joint : Bilateral Shoulders ([id number])
--- OUTSIDE RECORDS SUMMARY | 2025-05-07 09:21 | XMS_ITS | Clinical Summary ---
Author Organization [address] [place] [address] [place] [phone] Phone Care Team Providers Care Budget Director Name Role Phone Eldon Wilson MD Primary Care Provider [phone] Allergies No known active allergies Medications Praluent Pen 150 mg/mL pen injector INJECT 1 PEN (150MG) UNDER THE SKIN EVERY 14 DAYS DIRECTED 6 mL 1 5 Active metFORMIN (FORTAMET) 1,000 mg 24 hr tablet Take 1 tablet (1,000 mg total) by mouth 1 (one) time each day with dinner. Do not crush, chew, or split. Active amLODIPine (NORVASC) 5 mg tablet Take 1 tablet (5 mg total) by mouth 1 (one) time each day. Active omeprazole (PriLOSEC) [address] capsule Take 1 capsule (40 mg total) by mouth 1 (one) time each day. Do not crush or chew. Active metoprolol tartrate (LOPRESSOR) 50 mg tablet Take 1 tablet (50 mg total) by mouth 2 (two) times a day. Active aspirin 81 mg chewable tablet Chew 1 tablet (81 mg total) 1 (one) time each day. Active dulaglutide (Trulicity) 1.5 mg/0.5 mL pen injector injection Inject 0.5 mL (1.5 mg total) under the skin every 7 (seven) days. Active MAGNESIUM ORAL Take by mouth. Active loratadine (CLARITIN REDITABS) 10 mg dispersible tablet Dissolve 1 tablet (10 mg total) on top of the tongue 1 (one) time each day. Active coenzyme Q-10 30 mg capsule Active FOLIC ACID ORAL Take by mouth. Active TURMERIC ORAL Take by mouth. 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 No syncope. No further work up. Coronary artery disease invo lving [place] coronary artery of [place] heart without angina pectoris 11/21/2021 Overview (04/03/2025): longstanding ischemic heart disease 1198 status post LAD artery stenting March 2002 stents to left circumflex artery and RCA unsuccessful RCA interventions on medical therapy followed by ultimately successful rotational atherectomy with ANNA placement Assessment & Plan (04/03/2025 11:40 AM EDT): Catheterization from early with patent stents and successful rotational atherectomy of RCA with ANNA. No anginal symptoms. Continue with aspirin, amlodipine, metoprolol, and Praluent. We discussed risk reduction through lifestyle choices including healthy diet, routine exercise and weight management. Weight loss has been difficult for this patient. He recently had his dulaglutide increased and if he does not see results consider alternative GLP-1 injection. Orders: ECG 12 lead Essential hypertension 11/21/2021 Assessment & Plan (04/03/2025 10:58 AM EDT): Borderline controlled in office, generally controlled at home. Continue with metoprolol and amlodipine. Orders: ECG 12 lead Mixed hyperlipidemia 11/21/2021 Assessment & Plan (04/03/2025 11:40 AM EDT): Continue with Praluent. Orders: ECG 12 lead Encounters Date Type Department Care Team Description 04/03/2025 8:40 AM EDT Office Visit [facility] [address] [place] [phone] Luc Cordova NP Coronary artery disease involving [place] coronary artery of [place] heart without angina pectoris (Primary Dx); Essential hypertension; Mixed hyperlipidemia; RBBB (right bundle branch block with left anterior fascicular block) from Last 3 Months Social History Tobacco Use Types Packs/Day Years Used Date Smoking Tobacco: Former Smokeless Tobacco: Never Alcohol Use Standard Drinks/Week Comments Yes 0 (1 standard drink = 0.6 oz pur e alcohol) occasionally one or 2 drinks Sex and Gender Information Value Date Recorded Sex Assigned at Not on file Legal Sex Male 6:36 PM EST Gender Identity Not on file Sexual Orientation Not on file Obstetrics History Last Filed Vital Signs Vital Sign Reading Time Taken Comments Blood Pressure 140/84 04/03/2025 9:08 AM EDT Pulse 66 04/03/2025 9:08 AM EDT Temperature - - Respiratory Rate - - Oxygen Saturation 93% 04/03/2025 9:08 AM EDT Inhaled Oxygen Concentration - - Weight 119 kg (262 lb 9.6 oz) 04/03/2025 9:08 AM EDT Height 172.7 cm (5' 8 ) 04/03/2025 9:08 AM EDT Body Mass Index 39.93 04/03/2025 9:08 AM EDT Plan of Treatment Health Maintenance Due Date Last Done Comments Pneumococcal Vaccine: 50+ Years (1 of 1 - PCV) 01/11/2006 Zoster Vaccines (1 of 2) 01/11/2006 Abdominal Aortic Aneurysm (AAA) Screen 09/23/2022 Cholesterol Screening (Lipid Panel) 09/23/2022 Colorectal Cancer Screening: Colonoscopy 09/23/2022 Depression Screening 09/23/2022 Falls Risk Assessment 09/23/2022 Hepatitis C Screening 09/23/2022 Social Influencers of Health Screening 09/23/2022 Hypertension/CHF/CAD Annual BMP Blood Test 10/01/2022 COVID-19 Vaccine (3 - 2023-2 5 season) 2024 2021, 12/15/2020 Influenza Vaccine (#1) 2025 , 08/06/2020 DTaP,Tdap,and Td Vaccines (2 - Td or Tdap) 04/13/2030 04/13/2020 RSV Immunization Adult Patients (1 - 1-dose 75+ series) 01/11/2031 HIB Vaccines Aged Out No longer eligi [...] on patient's age to complete this topic Procedures Procedure Name Priority Date/Time Associated Diagnosis Comments ECG 12-LEAD Routine 04/03/2025 11:40 AM EDT Coronary artery disease involving [place] coronary artery of [place] heart without angina pectoris Essential hypertension Mixed hyperlipidemia from Last 3 Months Results * ECG 12 lead (04/03/2025 11:40 AM EDT) Ventricular Rate ECG 66 BPM GEMUSE Atrial Rate 66 BPM GEMUSE P-R Interval 126 ms GEMUSE QRS Duration 154 ms GEMUSE Q-T Interval 428 ms GEMUSE QTc 448 ms GEMUSE P Wave [place] -12 degrees GEMUSE R [place] -73 degrees GEMUSE T [place] 0 degrees GEMUSE ECG Interpretation Sinus rhythm with occasional Premature ventricular complexes Right bundle branch block Left anterior fascicular block Abnormal ECG No previous ECGs available Confirmed by SAAD SAMUEL ([id number]) on 04/03/2025 12:24:17 PM GEMUSE 04/03/2025 9:20 AM EDT 04/03/2025 12:24 PM EDT us Luc Cordova [employer] ECG ORDERABLES Edited Resu lt - Final GEMUSE from Last 3 Months Insurance MEDICARE [facility]) Care Teams Budget Director Relationship Specialty Start Date End Date Eldon Wilson MD [address] [place] [address] [place] [address] PCP - General 03/26/15
== END 2025-05-07 09:47 | disposition home or self-care (01) ==
LOC: HO.HOS 09:00
PROVIDERS: PCP Family Medicine; Visit Provider Orthopaedic Surgery
DX: M12.819 Other specific arthropathies, not elsewhere classified, unspecified shoulder (principal)
CPT/HCPCS: 20610; 99213

== ENCOUNTER → 2025-05-07 09:00 | Outpatient (BNVA) | payer BC, SELFPAY | PROVIDERS: PCP Family Medicine; Visit Provider Orthopaedic Surgery | DX: M12.811 Other specific arthropathies, not elsewhere classified, right shoulder (principal); M12.812 Other specific arthropathies, not elsewhere classified, left shoulder | CPT/HCPCS: 20610; J0665; J1100; J2003 ==

== ENCOUNTER 2025-07-01 07:54 | Outpatient (AMB) | payer BC, SELFPAY ==
--- NOTE | 2025-07-01 07:56 | MHC.PC.OV ---
Vital Signs 07/01/25 08:05 Height 5 ft 6 in Weight 261 lb BMI 42.1 BP 130/82 Blood Pressure Location Rt brachial Position Sitting Respiration 18 Pulse 67 Pulse Source Pulse Oximeter Temp 98.3 F Temp Source Temporal Artery Scan Pulse Oximetry (%) 97 Intake Visit Reasons: 3 MO F/UP - RACHEL PT Domestic Travel Consultant Required: No Accompanied by: Spouse Allergies sulfamethoxazole (From Bactrim) Allergy (Verified 07/01/25 07:56) Rash trimethoprim (From Bactrim) Allergy (Verified 07/01/25 07:56) Rash LAZARO Inhibitors Adverse Reaction (Verified 07/01/25 07:56) Cough Tobacco use date assessed: 07/01/25 Fall risk assessment: No Falls in past year Last assessed Fall Risk: 07/01/25 Dental Screening Did you have a dental visit in the last 12 months?: Yes HPI HPI Comments History of Present Illness Details The patient is a 70-year-old male presenting with routine follow-up for chronic disease management and health maintenance. The patient reports having hypertension, hyperlipidemia, Type 2 Diabetes Mellitus, and a history of coronary artery disease with seven stent placements. He has been managing hypertension and diabetes with medications effectively and has documented an A1c of 7.5% in January. The patient has not experienced any recent acute cardiac events or significant changes in his health status apart from occasional headaches attributed to weather changes. Regarding his hypertension and diabetes, the patient has been on amlodipine, metoprolol, metformin, and Trulicity, with the latter two being added within the past few years to manage his diabetes. His last A1c levels indicated suboptimal but stable control, and he remains within the target range, with no recent changes to his diabetic medication regime. The patient has a long-standing history of coronary artery disease but has reported no ongoing cardiac or respiratory symptoms post his stent placements. Medical History: - Hypertension - Hyperlipidemia - Type 2 Diabetes Mellitus (diagnosed a few years ago) - Coronary Artery Disease with seven stent placements - History of Diverticulitis Surgical History: - Coronary Artery Stent Placement (7 stents) - Diverticulitis-related bowel resection Medications: - Amlodipine: for blood pressure management - Metoprolol: for blood pressure and heart disease management - Metformin: for diabetes management - Trulicity: for diabetes management - Aspirin: for coronary artery disease Family History: - Father with heart disease - Father with diabetes - Father with hypertension - Aunts with cancer (throat and mouth) Social: - Retired but intermittently assists with hillary work - Quit smoking 42 years ago after smoking from ages 16 to 25 - Occasional alcohol use, estimated at once a week with one or two drinks - Engages in physical tasks like lifting and raising arms as part of daily activities [facility], [facility] Medical History (Updated 07/01/25 @ 08:45 by Pee Adams MD) Coronary artery disease Atherosclerotic heart disease of [place] coronary artery without angina pectoris HTN (hypertension) On beta dyan at home Diabetes Elevated cholesterol Osteoarthritis BPH (benign prostatic hyperplasia) History of diverticulitis GERD (gastroesophageal reflux disease) Acid reflux Surgical History History of intestinal surgery Hx of colonoscopy H/O heart artery stent Family History Paternal Grandfather Colon cancer Social History Household Members Other:: Housing: House Alcohol intake: current Patient Tobacco Use Status: Former Tobacco user Tobacco use type: Cigarette e-Cigarette/Vaping Use: Never Used service: No Current occupational status: retired Questionnaire PHQ-9 Over the last 2 weeks, how often have you been bothered by any of the following problems? 1. Little interest or pleasure in doing things: not at all 2. Feeling down, depressed, or hopeless: not at all 3. Trouble falling or staying asleep, or sleeping too much: not at all 4. Feeling tired or having little energy: not at all 5. Poor appetite or overeating: not at all 6. Feeling bad about yourself - or that you are a failure or have let yourself or your family down: not at all 7. Trouble concentrating on things, such as reading the newspaper or watching television: not at all 8. Moving or speaking so slowly that other people could have noticed. Or the opposite - being so fidgety or restless that you have been moving around a lot more than usual: not at all 9. Thoughts that you would be better off or of hurting yourself in some way: not at all Total score: 0 Depression Screening Interpretation: Negative Depression Screening Done: Yes 44806 - PHQ-9 Billing: Yes Source: Developed by Drs. Ad Abad, Cassandra Burk, Compa Steen and colleagues, with an educational luis from [employer]. Thrive Questionnaire Date Thrive assessed: 07/01/25 I am a: Patient What is your living situation today?: I have a steady place to live Within the past 12 months, did the food you bought not last and you didn't have the money to get more?: Never true Within the past 12 months, did you worry whether your food would run out before you got money to buy more?: Never true Do you have trouble paying for medicines?: No Do you have trouble getting transportation to medical appointments?: No Do you have trouble paying your heating and electricity bill?: No Do you have trouble taking care of your child, family member or friend?: No Do you have trouble with day-to-day activities such as bathing, preparing meals, shopping, managing finances, etc.?: No Are you currently unemployed and looking for a job?: No Are you interested in more education?: No THRIVE Score: 0 AUDIT C Alcohol Use Questionnaire (AUDIT-C) 1. How often do you have a drink containing alcohol?: 2-4 times a month 2. How many drinks containing alcohol do you have on a typical day when you are drinking?: 1 or 2 3. How often do you have six or more drinks on one occasion?: Never Total Score: 2 Score Reviewed/Action Taken: Yes GUDELIA-7 AMB Questionnaire GUDELIA-7 Date GUDELIA - 7 assessed: 07/01/25 Feeling nervous, anxious, or on edge: 0 = Not at all Not being able to stop or control worryin = Not at all Worrying too much about different things: 0 = Not at all Trouble relaxin = Not at all Being so restless that it is hard to sit still: 0 = Not at all Becoming easily annoyed or irritable: 0 = Not at all Feeling afraid as if something awful might happen: 0 = Not at all Total GUDELIA-7 score (0-4 normal; 5-9 mild; 10-14 moderate; 15-21 severe): 0 Source: Developed by Cassandra Cm Kurt Kroenke and colleagues, with an educational luis from [employer]. GUDELIA-7 Assessment Billing GUDELIA-7 Assessment Tool: GUDELIA-7 Assessment 59874 Review of Systems Const Details: - Neurologic: Reports occasional headaches - Endocrine: Denies hypoglycemia - Cardiovascular: Denies chest pain - Gastrointestinal: Reports regular bowel movements - Respiratory: Denies shortness of breath - Musculoskeletal: Reports stable mobility All systems reviewed & are unremarkable except as noted in HPI and below Physical exam (Primary Care) Vital Signs: Last Vital Signs Temp 98.3 F 07/01/25 08:05 Pulse 67 07/01/25 08:05 Resp 18 07/01/25 08:05 BP 130/82 07/01/25 08:05 Pulse Ox 97 07/01/25 08:05 BMI result Body Mass Index 42.1 Tobacco/Smoking Status: Tobacco use Status Tobacco use date assessed 07/01/25 07/01/25 07:57 Patient Tobacco Use Status Former Tobacco user 07/01/25 08:08 Tobacco use type Cigarette 07/01/25 08:08 e-Cigarette/Vaping Use Never Used 07/01/25 08:08 Depression Screening Interpretation: Negative Const Other: General: Alert and oriented, Well nourished, No acute distress. Eye: Pupils are equal, round and reactive to light, Intact accommodation, Extraocular movements are intact, Normal conjunctiva, Vision unchanged. HENT: Normocephalic, Atraumatic, Tympanic membranes are clear, Normal hearing, Oral mucosa is moist, No pharyngeal erythema, Ear canals patent. Respiratory: Lungs CTA bilaterally, No wheeze, Respirations are non-labored. Cardiovascular: Regular rate, Regular rhythm, S1 auscultated, S2 auscultated, No murmur, Good pulses equal in all extremities, Normal peripheral perfusion, No edema. Gastrointestinal: Soft, Non-tender, Non-distended, Normal bowel sounds, No organomegaly. Musculoskeletal: Normal range of motion, Normal strength, No tenderness, No swelling, No deformity, Normal gait. Integumentary: Warm, Dry, [place], Intact. Neurologic: Alert, Oriented, Normal sensory, Normal motor function, No focal defects, Cranial Nerves II-XII are grossly intact, Normal deep tendon reflexes. Psychiatric: Cooperative, Appropriate mood & affect, Normal judgment. Coding Level of Care Code New Pt Level 4 (67821) New Pt Prev Care >65yr (13746) Diagnoses Hypertension, unspecified type I10 Hypertension type: unspecified Type 2 diabetes mellitus without complication, without long-term current use of insulin E11.9 Diabetes mellitus type: type 2 Diabetes mellitus exterminator termite insulin use: without mcfp use Diabetes mellitus complication status: without complication Rotator cuff arthropathy of both shoulders M12.811; M12.812 AKBAR (obstructive sleep apnea) G47.33 Coronary artery disease involving [place] heart without angina pectoris, unspecified vessel or lesion type I25.10 Coronary Disease-Associated Artery/Lesion type: unspecified vessel or lesion type [place] vs. transplanted heart: [place] heart Associated angina: without angina Additional Codes PHQ-9 - 76159 - PHQ-9 Billing: Yes ([id number]) GUDELIA-7 Assessment Billing - GUDELIA-7 Assessment Tool: GUDELIA-7 Assessment 08760 ([id number]) Assessment & Plan Assessment & Plan (1) HTN (hypertension): Comment: - Continue Amlodipine and Metoprolol. - Reinforce the importance of home blood pressure monitoring. Code(s): I10 - Essential (primary) hypertension Category: Medical Qualifiers: Hypertension type: unspecified Qualified Code(s): I10 - Essential (primary) hypertension (2) Diabetes: Comment: - Continue Metformin and Trulicity. - Monitor A1c regularly with adjustments as necessary. (most recent A1c 7.5) Code(s): E11.9 - Type 2 diabetes mellitus without complications Category: Medical Qualifiers: Diabetes mellitus type: type 2 Diabetes mellitus mcfp insulin use: without exterminator termite use Diabetes mellitus complication status: without complication Qualified Code(s): E11.9 - Type 2 diabetes mellitus without complications (3) Rotator cuff arthropathy of both shoulders: Comment: - Follows with Ortho and s/p injection in B/l Shoulders - Continued follow up with ortho Code(s): M12.811 - Other specific arthropathies, not elsewhere classified, right shoulder; M12.812 - Other specific arthropathies, not elsewhere classified, left shoulder Category: Medical (4) AKBAR (obstructive sleep apnea): Comment: severe sleep apnea. The AHI was 62/hr and the oxygen kary was 38%. The average O2 was 84%. Code(s): G47.33 - Obstructive sleep apnea (adult) (pediatric) Category: Medical (5) Coronary artery disease: Comment: - S/p 7 stents - Continue aspirin therapy. - Regular follow-up with hvac services professional for ongoing management. Code(s): I25.10 - Atherosclerotic heart disease of [place] coronary artery without angina pectoris Category: Medical Qualifiers: Coronary Disease-Associated Artery/Lesion type: unspecified vessel or lesion type [place] vs. transplanted heart: [place] heart Associated angina: without angina Qualified Code(s): I25.10 - Atherosclerotic heart disease of [place] coronary artery without angina pectoris Plan During our discussion, I emphasized the importance of maintaining adequate glycemic and blood pressure control, understanding his current diabetes management with Metformin and Trulicity, and continuing with Amlodipine and Metoprolol for hypertension. We discussed the implications of his current A1c level of 7.5% and agreed on monitoring these values regularly to ensure they remain within the target range, making adjustments to therapy if necessary. We reviewed his cardiovascular status post-cardiac stenting and emphasized the benefits of continuing aspirin for coronary artery disease secondary prevention. I advised that maintaining a healthy diet and regular physical activity can further aid in controlling his diabetes and hypertension. We also reviewed his smoking and alcohol history and discussed the benefits of continued abstinence from smoking and moderate alcohol consumption. A colonoscopy is scheduled for 2025, aligning with routine screening guidelines. Orders: Orders Lipid Panel Today E11.9 - Type 2 diabetes mellitus without complications TSH reflex Free T4 Today E11.9 - Type 2 diabetes mellitus without complications Vitamin D 25-OH Total Today E11.9 - Type 2 diabetes mellitus without complications Complete Blood Count Auto Diff Today E11.9 - Type 2 diabetes mellitus without complications Comprehensive Met. Panel Today E11.9 - Type 2 diabetes mellitus without complications Hemoglobin A1c Today E11.9 - Type 2 diabetes mellitus without complications Referrals Open Access Screening Colonoscopy Referral Z12.11 - Encounter for screening for malignant neoplasm of colon Patient Instructions: - Continue taking your blood pressure and diabetes medications as prescribed. - Monitor blood sugar levels at home and visit the lab for your next A1c test. - Maintain a balanced diet and regular physical activity. - Keep up with your aspirin regimen for heart health. - Avoid smoking and keep alcohol consumption moderate. - Stay aware of any significant changes in your health and report them as needed. - Schedule your next follow-up in alignment with routine check-ups or sooner if needed.
--- OUTSIDE RECORDS SUMMARY | 2025-07-01 07:58 | XMS_ITS | Clinical Summary ---
Author Organization [address] [place] [address] [place] [id number] Phone Care Team Providers Care Rerecording Mixer Name Role Phone Eldon Wilson MD Primary Care Provider [phone] Allergies No known active allergies Medications metFORMIN (FORTAMET) 1,000 mg 24 hr tablet [...] Active TURMERIC ORAL Take by mouth. 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 No syncope. No further work up. Coronary artery disease invo lving [place] coronary artery of [place] heart without angina pectoris 11/21/2021 Overview (04/03/2025): [...] Description 04/03/2025 8:40 AM EDT Office Visit [facility] [address] [place] [address] Luc Cordova NP Coronary artery disease involving [place] coronary artery of [place] heart without angina pectoris (Primary Dx); Essential [...] Panel) 09/23/2022 Colorectal Cancer Screening: Colonoscopy 09/23/2022 Falls Risk Assessment 09/23/2022 Hepatitis C Screening 09/23/2022 Social Influencers of Health Screening 09/23/2022 Hypertension/CHF/CAD Annual BMP Blood Test 10/01/2022 Depression Screening 10/22/2024 COVID-19 Vaccine (3 - 2024-2 6 season) 2025 2021, 12/15/2020 Influenza Vaccine (#1) 2025 , [...] 11:40 AM EDT Coronary artery disease involving [place] coronary artery of [place] heart without angina pectoris Essential hypertension Mixed hyperlipidemia from Last 3 Months Results * ECG 12 lead (04/03/2025 11:40 AM EDT) Ventricular Rate ECG 66 BPM GEMUSE Atrial Rate 66 BPM GEMUSE P-R Interval 126 ms GEMUSE QRS Duration 154 ms GEMUSE Q-T Interval 428 ms GEMUSE QTc 448 ms GEMUSE P Wave [place] -12 degrees GEMUSE R [place] -73 degrees GEMUSE T [place] 0 degrees GEMUSE ECG Interpretation Sinus rhythm with occasional Premature ventricular complexes Right bundle branch block Left anterior fascicular block Abnormal ECG No previous ECGs available Confirmed by SAAD SAMUEL ([id number]) on 04/03/2025 12:24:17 PM GEMUSE 04/03/2025 9:20 AM EDT 04/03/2025 12:24 PM EDT us Luc Cordova ONCOLOGY SOCIAL WORKER ECG ORDERABLES Edited Resu lt - Final GEMUSE from Last 3 Months Insurance MEDICARE [facility]) Care Teams Rerecording Mixer Relationship Specialty Start Date End Date Eldon Wilson MD [address] [place] [address] [place] [address] PCP - General 03/26/15
[2025-07-01 08:05] VITALS: BP 130/82; PULSE 67; RESP 18; TEMP 36.8; O2SAT 97; BMI 42.1
== END 2025-07-01 08:40 | disposition home or self-care (01) ==
LOC: HO.HMCHD 07:55
PROVIDERS: PCP Student in an Organized Health Care Education/Training Program; Visit Provider Student in an Organized Health Care Education/Training Program
DX: Z00.00 Encounter for general adult medical examination without abnormal findings (principal); E11.9 Type 2 diabetes mellitus without complications; I10 Essential (primary) hypertension; M12.811 Other specific arthropathies, not elsewhere classified, right shoulder; M12.812 Other specific arthropathies, not elsewhere classified, left shoulder; G47.33 Obstructive sleep apnea (adult) (pediatric); I25.10 Atherosclerotic heart disease of native coronary artery without angina pectoris

== ENCOUNTER → 2025-07-01 07:54 | Outpatient (BNVA) | payer BC, SELFPAY | PROVIDERS: PCP Family Medicine; Visit Provider Student in an Organized Health Care Education/Training Program | DX: I10 Essential (primary) hypertension (principal); E11.9 Type 2 diabetes mellitus without complications; M12.811 Other specific arthropathies, not elsewhere classified, right shoulder; M12.812 Other specific arthropathies, not elsewhere classified, left shoulder; G47.33 Obstructive sleep apnea (adult) (pediatric); I25.10 Atherosclerotic heart disease of native coronary artery without angina pectoris; Z79.82 Long term (current) use of aspirin; Z79.84 Long term (current) use of oral hypoglycemic drugs; Z13.31 Encounter for screening for depression; Z13.39 Encounter for screening examination for other mental health and behavioral disorders | CPT/HCPCS: 96127 ==

== ENCOUNTER 2025-10-08 09:12 | Outpatient (REF) | payer BC, SELFPAY ==
[2025-10-08 09:47] LABS: MANUAL DIFF FLAG NO
[2025-10-08 10:22] LABS: Hematocrit 43.9 % (42.0-52.0); Hemoglobin 14.4 g/dl (14.0-18.0); Imm Gran Abs Auto 0.03 X10*3/uL (0.00-0.03); Imm Gran Pct Auto 0.4 % (0.0-0.4); Lymphocytes Absolute Auto 2.2 X10*3/uL (1.2-4.9); Mean Corpuscular HGB Conc 32.8 g/dl (31.0-36.0); Mean Corpuscular Hemoglobin 29.0 pg (27.0-33.0); Mean Corpuscular Volume 88.5 fL (80.0-98.0); NRBC Abs Auto 0.000 X10*3/uL (0.0-0.012); NRBC Pct Auto 0.0 /100WBC (0.0-0.2); Platelet Count 281 X10*3/uL (160-400); Red Blood Count 4.96 X10*6/uL (4.60-5.80); White Blood Count 7.6 X10*3/uL (4.8-10.8)
[2025-10-08 10:45] LABS: Hemoglobin A1C 138.0954 umol/L
[2025-10-08 11:47] LABS: Anion Gap 12 (12-20)
[2025-10-08 11:52] LABS: Alanine Aminotransferase 21 U/L (0-40); Albumin Level 4.4 g/dL (3.5-5.0); Alkaline Phosphatase 79 U/L (39-117); Aspartate Amino Transferase 19 U/L (5-37); Blood Urea Nitrogen 12 mg/dL (9-16); Calcium 9.5 mg/dL (8.4-10.2); Carbon Dioxide 30 mmol/L (22-29); Chloride 103 mmol/L (96-108); Cholesterol 111 mg/dL (<200); Estimated Glomerular Filt Rate > 60; HDL Cholesterol 33 mg/dL (>40); Potassium 4.7 mmol/L (3.3-5.1); Sodium 140 mmol/L (135-145); Total Protein 7.5 g/dL (6.5-8.0); Triglycerides 219 mg/dL (<150)
== END 2025-10-08 09:13 | disposition home or self-care (01) ==
LOC: HO.LAB 09:12
PROVIDERS: PCP Student in an Organized Health Care Education/Training Program; Visit Provider Student in an Organized Health Care Education/Training Program
DX: E11.9 Type 2 diabetes mellitus without complications (principal); Z13.21 Encounter for screening for nutritional disorder
CPT/HCPCS: 36415; 80053; 80061; 82306; 83036; 84443; 85025